=== PATIENT | male | born 1980 | race American Indian/Alaskan Native ===

== ENCOUNTER 2018-12-09 07:08 | Inpatient (IN) | payer SELFPAY ==
[2018-12-09] MEDS ORDERED: IBUPROFEN PO ONE (08:16)
[2018-12-09 09:16] LABS: Basophils % (Auto) 0.4 % (0.0-1.8); Eosinophils # (Auto) 0.1 K/mm3 (0.0-0.4); Eosinophils % (Auto) 1.1 % (0.0-4.3); Lymphocytes # (Auto) 1.8 K/mm3 (1.2-5.4); Lymphocytes % (Auto) 24.4 % (13.4-35.0); Mean Corpuscular HGB Conc 34 % (32-34); Mean Corpuscular Volume 100 fl (84-94); Monocytes # (Auto) 0.7 K/mm3 (0.0-0.8); Monocytes % (Auto) 9.9 % (0.0-7.3); Platelet Count 239 K/mm3 (140-440); Red Blood Count 3.82 M/mm3 (3.65-5.03); Red Cell Distribution Width 13.3 % (13.2-15.2)
--- NOTE | 2018-12-09 09:21 | XRay Report ---
CHEST 2 VIEWS INDICATION / CLINICAL INFORMATION: Chest pain for one day. COMPARISON: None available. FINDINGS: SUPPORT DEVICES: None. HEART / MEDIASTINUM: The heart size and pulmonary vasculature are normal. The aorta is normal in lisseth william. LUNGS / PLEURA: No significant pulmonary or pleural abnormality. No pneumothorax. ADDITIONAL FINDINGS: No significant additional findings. IMPRESSION: No acute findings. Signer Name: Bonifacio Fernandez MD Signed: 12/09/2018 9:16 AM Workstation Name: [id number]
[2018-12-09 09:35] LABS: BUN/Creatinine Ratio 7; Blood Urea Nitrogen 8 mg/dL (9-20); Calcium 8.7 mg/dL (8.4-10.2); Hemolysis Index 10
--- NOTE | 2018-12-09 11:35 | Vascular Lab Report ---
DUPLEX DOPPLER LOWER EXTREMITY VEINS, RIGHT INDICATION: Right leg pain and elevated d-dimer. TECHNIQUE: Duplex doppler imaging was performed through the veins of the right lower extremity using venous comp ression and other maneuvers. COMPARISON: None available. FINDINGS: Common femoral vein: Negative. Superficial femoral vein: Negative. Popliteal vein: Negative. Calf veins: Negative. Additional findings: There is no evidence of a popliteal cyst or other abnormality. IMPRESSION: No sonographic evidence for DVT in the right lower extremity. Signer Name: Bonifacio Fernandez MD Signed: 12/09/2018 11:30 AM Workstation Name: [id number]
--- NOTE | 2018-12-09 13:32 | Cat Scan Report ---
CTA chest with contrast INDICATION : cp, sob with elevated ddimer. TECHNIQUE: Axial imaging performed through the chest, with contrast bolus timing set to maximize opa cification of the pulmonary arteries. 3-plane MIP reformatted images were obtained. All CT scans at this location are performed using CT dose reduction for ALARA by means of automated exposure control. 100 mL of intravenous contrast administered. COMPARISON: None FINDINGS: Bolus: Contrast bolus timing is adequate. PTE: There is extensive thrombus within the left main, segmental, and subsegmental distribution in t he left upper and lower lobes. Mediastinum: Heart size is normal. No evidence of heart strain. No pathologic mediastinal adenopath y. Lungs: Lungs are clear. Upper abdomen: Limited imaging of the upper abdomen shows nothing acute. Bones: Degenerative changes in the spine with nothing acute. IMPRESSION: 1. Positive for PTE in the left lung as outlined above. No evidence of heart strain, parenchymal blanco ge in the lungs, or effusion. Critical result discovered at 1220 hours and called to Dr. Owens at 1222 hours on 12/09/18. A read ba ck was performed. Signer Name: Brad Muñoz MD Signed: 12/09/2018 1:28 PM Workstation Name: [id number]
[2018-12-09] MEDS ORDERED: HEPARIN 10,000 UNITS/10 ML IV ONE (13:56)
--- NOTE | 2018-12-09 14:04 | Emergency Department Report ---
ED General Adult HPI - General Chief complaint: Extremity Injury, Lower Stated complaint: R LEG PAIN Time Seen by Provider: 12/09/18 08:06 Source: patient Mode of arrival: Ambulatory Limitations: No Limitations - History of Present Illness Initial comments: Patient is a 38-year-old male who is presenting with right calf pain. Patient states that yesterday he was walking outside to a store and started having some CENTRAL chest pain shortness of breath. The patient states that he does began having some right calf pain. Patient states what she got to where he was at his chest pain did improve. Patient is currently chest pain free and has no shortness of breath. He denies any cough, congestion. Patient is continued to have right calf pain which is progressively worsening. Patient states that to 10 out of 10 in severity when he walks. Severity scale (0 -10): 8 - Related Data Allergies Allergy/AdvReac Type Severity Reaction Status Date / Time No Known Allergies Allergy Verified 12/09/18 14:05 ED Review of Systems ROS: Stated complaint: R LEG PAIN Other details as noted in HPI Comment: All other systems reviewed and negative ED Past Medical Hx - Past Medical History Previous Medical History?: No - Surgical History Past Surgical History?: Yes Additional Surgical History: Right hand - Social History Smoking Status: Current Every Day Smoker Substance Use Type: None ED Physical Exam - General Limitations: No Limitations General appearance: alert, in no apparent distress - Head Head exam: Present: atraumatic, normocephalic - Eye Eye exam: Present: normal appearance - ENT ENT exam: Present: mucous membranes moist - Neck Neck exam: Present: normal inspection - Respiratory Respiratory exam: Present: normal lung sounds bilaterally. Absent: respiratory distress, wheezes, rales, rhonchi - Cardiovascular Cardiovascular Exam: Present: regular rate, normal rhythm, normal heart sounds. Absent: systolic murmur, diastolic murmur, rubs, gallop - GI/Abdominal GI/Abdominal exam: Present: soft, normal bowel sounds. Absent: distended, tenderness, guarding, rebound - Rectal Rectal exam: Present: deferred - Extremities Exam Extremities exam: Present: normal inspection, tenderness (right calf) - Back Exam Back exam: Present: normal inspection - Neurological Exam Neurological exam: Present: alert, oriented X3 - Psychiatric Psychiatric exam: Present: normal affect, normal mood - Skin Skin exam: Present: warm, dry, intact, normal color. Absent: rash ED Course Vital Signs 12/09/18 12/09/18 07:12 08:21 Temperature 98.9 F Pulse Rate 94 H Respiratory 18 18 Rate Blood Pressure 121/73 O2 Sat by Pulse 96 Oximetry ED Medical Decision Making - Lab Data Result diagrams: 12/09/18 08:28 12/09/18 08:28 Lab Results 12/09/18 12/09/18 12/09/18 Range/Units 08:28 08:28 08:28 WBC 7.4 (4.5-11.0) K/mm3 RBC 3.82 (3.65-5.03) M/mm3 Hgb 13.0 (11.8-15.2) gm/dl Hct 38.0 (35.5-45.6) % MCV 100 H (84-94) fl MCH 34 H (28-32) pg MCHC 34 (32-34) % RDW 13.3 (13.2-15.2) % Plt Count 239 (140-440) K/mm3 Lymph % (Auto) 24.4 (13.4-35.0) % [place] % (Auto) 9.9 H (0.0-7.3) % Eos % (Auto) 1.1 (0.0-4.3) % Baso % (Auto) 0.4 (0.0-1.8) % Lymph # 1.8 (1.2-5.4) K/mm3 [place] # 0.7 (0.0-0.8) K/mm3 Eos # 0.1 (0.0-0.4) K/mm3 Baso # 0.0 (0.0-0.1) K/mm3 Seg Neutrophils % 64.2 (40.0-70.0) % Seg Neutrophils # 4.7 (1.8-7.7) K/mm3 D-Dimer 1936.24 H (0-234) ng/mlDDU Sodium 141 (137-145) mmol/L Potassium 3.8 (3.6-5.0) mmol/L Chloride 105.9 (98-107) mmol/L Carbon Dioxide 23 (22-30) mmol/L Anion Gap 16 mmol/L BUN 8 L (9-20) mg/dL Creatinine 1.1 (0.8-1.5) mg/dL Estimated GFR > 60 ml/min BUN/Creatinine Ratio 7 % Glucose 97 (75-100) mg/dL Calcium 8.7 (8.4-10.2) mg/dL Troponin T < 0.010 (0.00-0.029) ng/mL - Radiology Data [address] [address] Vascular Lab Report Signed Patient: SUJATHA ROSADO MR#: [id number] : 1980 Acct:[id number] Age/Sex: 38 / M ADM Date: 12/09/18 Loc: ED Attending Dr: Ordering Physician: PREMA OWENS MD Date of Service: 12/09/18 Procedure(s): VL venous duplex LE RT Accession Number(s): [id number] cc: PREMA OWENS MD DUPLEX DOPPLER LOWER EXTREMITY VEINS, RIGHT INDICATION: Right leg pain and elevated d-dimer. TECHNIQUE: Duplex doppler imaging was performed through the veins of the right lower extremity using venous compression and other maneuvers. COMPARISON: None available. FINDINGS: Common femoral vein: Negative. Superficial femoral vein: Negative. Popliteal vein: Negative. Calf veins: Negative. Additional findings: There is no evidence of a popliteal cyst or other abnormality. IMPRESSION: No sonographic evidence for DVT in the right lower extremity. Signer Name: Bonifacio Fernandez MD Signed: 12/09/2018 11:30 AM Workstation Name: [id number] Transcribed By: RT Dictated By: Bonifacio Fernandez MD Electronically Authenticated By: Bonifacio Fernandez MD Signed Date/Time: 12/09/[address] [address] Cat Scan Report Signed Patient: SUJATHA ROSADO MR#: [id number] : 1980 Acct:[id number] Age/Sex: 38 / M ADM Date: 12/09/18 Loc: ED Attending Dr: Ordering Physician: PREMA OWENS MD Date of Service: 12/09/18 Procedure(s): CT angio chest Accession Number(s): [id number] cc: PREMA OWENS MD CTA chest with contrast INDICATION : cp, sob with elevated ddimer. TECHNIQUE: Axial imaging performed through the chest, with contrast bolus timing set to maximize opacification of the pulmonary arteries. 3-plane MIP reformatted images were obtained. All CT scans at this location are performed using CT dose reduction for ALARA by means of automated exposure control. 100 mL of intravenous contrast administered. COMPARISON: None FINDINGS: Bolus: Contrast bolus timing is adequate. PTE: There is extensive thrombus within the left main, segmental, and subsegmental distribution in the left upper and lower lobes. Mediastinum: Heart size is normal. No evidence of heart strain. No pathologic mediastinal adenopathy. Lungs: Lungs are clear. Upper abdomen: Limited imaging of the upper abdomen shows nothing acute. Bones: Degenerative changes in the spine with nothing acute. IMPRESSION: 1. Positive for PTE in the left lung as outlined above. No evidence of heart strain, parenchymal change in the lungs, or effusion. Critical result discovered at 1220 hours and called to Dr. Owens at 1222 hours on 12/09/18. A read back was performed. Signer Name: Brad Muñoz MD Signed: 12/09/2018 1:28 PM Workstation Name: [id number] Transcribed By: JW Dictated By: Brad Muñoz MD Electronically Authenticated By: Brad Muñoz MD Signed Date/Time: 12/09/18 1328 DD/ 1319 TD/TT: DD/ 1129 - Medical Decision Making Despite being chest pain-free and not having shortness of breath patient does have extensive pulmonary embolus on the CT angiogram. Patient was started on heparin drip and will be admitted to the hospitalist service at this time. Critical care attestation.: If time is entered above; I have spent that time in minutes in the direct care of this critically ill patient, excluding procedure time. ED Disposition Clinical Impression: Pulmonary embolism Qualifiers: Pulmonary embolism type: other Chronicity: acute Acute cor pulmonale presence: without acute cor pulmonale Qualified Code(s): I26.99 - Other pulmonary embolism without acute cor pulmonale Disposition: OP ADMIT IP TO THIS HOSP Is pt being admited?: Yes Does the pt Need Aspirin: No Condition: Stable Time of Disposition: 14:12
[2018-12-09] MEDS ORDERED: MORPHINE IV ONE (14:15)
[2018-12-09 14:47] LABS: Hematocrit 36.9 % (35.5-45.6); Hemoglobin 13.2 gm/dl (11.8-15.2)
[2018-12-09] MEDS: HEPARIN/ 0.45% NACL-25,000 UNIT/500 ML 25,000 UNIT/500 ML BAG IV SCH (14:50)
[2018-12-09 14:59] LABS: INR 1.03 (0.87-1.13)
[2018-12-09 15:00] LABS: Partial Thromboplastin Time 27.5 Sec. (24.2-36.6)
--- NOTE | 2018-12-09 19:18 | History and Physical Report ---
History of Present Illness Date of examination: 12/09/18 Date of admission: 12/09/18 14:12 Chief complaint: RLE pain and SOB for one day History of present illness: 38-year-old male presents with right calf pain and SOB on minimal exertion. Patient states that yesterday he was walking to a store and started having some chest pain shortness of breath. The patient states that he does began having some right calf pain. Patient states his chest pain did improve. Patient is currently chest pain free and has no shortness of breath. He denies any cough, congestion. Patient continues to have right calf pain which is progressively worsening. Patient states that it is 10 out of 10 in severity when he walks. Past Medical History No Surgical History Right hand surgery Social History Smoking Status: Current Every Day Smoker Substance Use Type: None Family History Htn Review of Systems ROS: Stated complaint: R LEG PAIN Other details as noted in HPI Comment: All other systems reviewed and negative Medications and Allergies Allergies Allergy/AdvReac Type Severity Reaction Status Date / Time No Known Allergies Allergy Verified 12/09/18 14:05 Home Medications Medication Instructions Recorded Confirmed Last Taken Type No Known Home Medications [No 12/09/18 12/09/18 Unknown History Reported Home Medications] Active Meds: Active Medications Heparin Sodium/Sodium Chloride (Heparin/ 0.45% Nacl-25,000 Unit/500 Ml) 25,000 unit in 500 mls @ 30 mls/hr IV TITR SHARATH; Protocol Last Admin: 12/09/18 14:50 Dose: 1,500 units/hr, 30 mls/hr Documented by: Exam - Constitutional Vitals: Temp Pulse Resp BP Pulse Ox 98.9 F 78 16 122/73 96 12/09/18 07:12 12/09/18 16:51 12/09/18 16:51 12/09/18 16:51 12/09/18 16:51 General appearance: Present: mild distress, well-nourished - EENT Eyes: Present: PERRL ENT: hearing intact, clear oral mucosa - Neck Neck: Present: supple, normal ROM - Respiratory Respiratory effort: normal Respiratory: bilateral: CTA - Cardiovascular Heart rate: 100 Rhythm: regular Heart Sounds: Present: S1 & S2. Absent: rub, click - Extremities Extremities: no ischemia, pulses intact, pulses symmetrical, No edema Peripheral Pulses: within normal limits - Abdominal General gastrointestinal: Present: soft, non-tender, non-distended, normal bowel sounds Male genitourinary: Present: normal - Integumentary Integumentary: Present: clear, warm, dry - Musculoskeletal Musculoskeletal: gait normal, strength equal bilaterally - Psychiatric Psychiatric: appropriate mood/affect, intact judgment & insight - Neurologic Neurologic: CNII-XII intact, moves all extremities - Allied Health Allied health notes reviewed: nursing, case management Results - Labs CBC & Chem 7: 12/10/18 05:07 12/10/18 05:07 Labs: Laboratory Last Values WBC 7.4 K/mm3 (4.5-11.0) 12/09/18 08:28 RBC 3.82 M/mm3 (3.65-5.03) 12/09/18 08:28 Hgb 13.2 gm/dl (11.8-15.2) 12/09/18 14:29 Hct 36.9 % (35.5-45.6) 12/09/18 14:29 MCV 100 fl (84-94) H 12/09/18 08:28 MCH 34 pg (28-32) H 12/09/18 08:28 MCHC 34 % (32-34) 12/09/18 08:28 RDW 13.3 % (13.2-15.2) 12/09/18 08:28 Plt Count 245 K/mm3 (140-440) 12/09/18 14:29 Lymph % (Auto) 24.4 % (13.4-35.0) 12/09/18 08:28 [place] % (Auto) 9.9 % (0.0-7.3) H 12/09/18 08:28 Eos % (Auto) 1.1 % (0.0-4.3) 12/09/18 08:28 Baso % (Auto) 0.4 % (0.0-1.8) 12/09/18 08:28 Lymph # 1.8 K/mm3 (1.2-5.4) 12/09/18 08:28 [place] # 0.7 K/mm3 (0.0-0.8) 12/09/18 08:28 Eos # 0.1 K/mm3 (0.0-0.4) 12/09/18 08:28 Baso # 0.0 K/mm3 (0.0-0.1) 12/09/18 08:28 Seg Neutrophils % 64.2 % (40.0-70.0) 12/09/18 08:28 Seg Neutrophils # 4.7 K/mm3 (1.8-7.7) 12/09/18 08:28 PT 13.2 Sec. (12.2-14.9) 12/09/18 14:29 INR 1.03 (0.87-1.13) 12/09/18 14:29 APTT 27.5 Sec. (24.2-36.6) 12/09/18 14:29 1936.24 ng/mlDDU (0-234) H 12/09/18 08:28 Sodium 141 mmol/L (137-145) 12/09/18 08:28 Potassium 3.8 mmol/L (3.6-5.0) 12/09/18 08:28 Chloride 105.9 mmol/L (98-107) 12/09/18 08:28 Carbon Dioxide 23 mmol/L (22-30) 12/09/18 08:28 16 mmol/L 12/09/18 08:28 BUN 8 mg/dL (9-20) L 12/09/18 08:28 1.1 mg/dL (0.8-1.5) 12/09/18 08:28 Estimated GFR > 60 ml/min 12/09/18 08:28 7 % 12/09/18 08:28 Glucose 97 mg/dL (75-100) 12/09/18 08:28 Calcium 8.7 mg/dL (8.4-10.2) 12/09/18 08:28 < 0.010 ng/mL (0.00-0.029) 12/09/18 08:28 Short CBC 12/09/18 12/09/18 12/10/18 Range/Units 08:28 14:29 05:07 WBC 7.4 6.5 (4.5-11.0) K/mm3 Hgb 13.0 13.2 12.9 (11.8-15.2) gm/dl Hct 38.0 36.9 38.0 (35.5-45.6) % Plt Count 239 245 246 (140-440) K/mm3 BMP 12/09/18 12/10/18 08:28 05:07 Sodium 141 138 Potassium 3.8 4.2 Chloride 105.9 106.8 Carbon Dioxide 23 22 BUN 8 L 8 L Creatinine 1.1 1.0 Glucose 97 104 H Calcium 8.7 8.3 L Cardiac Enzymes 12/09/18 Range/Units 08:28 Troponin T < 0.010 (0.00-0.029) ng/mL Liver Function 12/10/18 Range/Units 05:07 Total Bilirubin 0.40 (0.1-1.2) mg/dL AST 8 (5-40) units/L ALT 10 (7-56) units/L Alkaline Phosphatase 97 (35-129) units/L Albumin 3.2 L (3.9-5) g/dL - Imaging and Cardiology EKG: report reviewed CT scan - chest: report reviewed Imaging and Cardiology: CTA chest PTE: There is extensive thrombus within the left main, segmental, and subsegmental distribution in the left upper and lower lobes. Mediastinum: Heart size is normal. No evidence of heart strain. No pathologic mediastinal adenopathy. Lungs: Lungs are clear. IMPRESSION: 1. Positive for PTE in the left lung as outlined above. No evidence of heart strain, parenchymal change in the lungs, or effusion DUPLEX DOPPLER LOWER EXTREMITY VEINS, RIGHT INDICATION: Right leg pain and elevated d-dimer. . FINDINGS: Common femoral vein: Negative. Superficial femoral vein: Negative. Popliteal vein: Negative. Calf veins: Negative. Additional findings: There is no evidence of a popliteal cyst or other abnormality. IMPRESSION: No sonographic evidence for DVT in the right lower extremity. Assessment and Plan Advance Directives: Yes (Full code) VTE prophylaxis?: Chemical Plan of care discussed with patient/family: Yes - Patient Problems (1) Acute pulmonary embolism Current Visit: Yes Status: Acute Qualifiers: Acute cor pulmonale presence: without acute cor pulmonale Plan to address problem: Initiated on IV Heparin drip Vascular sugery consult for possible EKOS Will defer to primary team regarding ELIQUIS/Coumadin/Xarelto (2) Nicotine dependence Current Visit: Yes Status: Chronic Qualifiers: Nicotine product type: cigarettes Plan to address problem: Counselled Less than 10 minutes Nicoderm patch initiated (3) DVT prophylaxis Current Visit: Yes Status: Acute Plan to address problem: On Heparin drip and GI prophylaxis
[2018-12-09] MEDS ORDERED: TYLENOL PO PRN (19:19)
[2018-12-09] MEDS ORDERED: DILAUDID IV PRN (19:19)
[2018-12-09] MEDS ORDERED: SODIUM CHLORIDE FLUSH SYRINGE 10 ML IV PRN (19:19)
[2018-12-09] MEDS ORDERED: ZOFRAN IV PRN (19:19)
[2018-12-09] MEDS: PERCOCET 5/325 PO PRN (20:35)
[2018-12-09] MEDS: NACL 0.9% 1000 ML 1,000 ML IV SCH (20:36)
[2018-12-09] MEDS: PEPCID PO SCH (21:10)
[2018-12-09] MEDS: SODIUM CHLORIDE FLUSH SYRINGE 10 ML IV SCH (21:10)
[2018-12-10] MEDS: PERCOCET 5/325 PO PRN ×3 (02:27→19:23)
[2018-12-10 06:11] LABS: Basophils % (Auto) 0.6 % (0.0-1.8); Eosinophils # (Auto) 0.1 K/mm3 (0.0-0.4); Eosinophils % (Auto) 2.2 % (0.0-4.3); Hemoglobin 12.9 gm/dl (11.8-15.2); Lymphocytes # (Auto) 2.3 K/mm3 (1.2-5.4); Lymphocytes % (Auto) 34.8 % (13.4-35.0); Mean Corpuscular HGB Conc 34 % (32-34); Mean Corpuscular Volume 100 fl (84-94); Monocytes # (Auto) 0.5 K/mm3 (0.0-0.8); Monocytes % (Auto) 8.4 % (0.0-7.3); Platelet Count 246 K/mm3 (140-440); Red Blood Count 3.79 M/mm3 (3.65-5.03); Red Cell Distribution Width 13.3 % (13.2-15.2)
[2018-12-10 06:34] LABS: Alanine Aminotransferase 10 units/L (7-56); Albumin 3.2 g/dL (3.9-5); BUN/Creatinine Ratio 8; Blood Urea Nitrogen 8 mg/dL (9-20); Calcium 8.3 mg/dL (8.4-10.2); Hemolysis Index 5
[2018-12-10] MEDS: HEPARIN/ 0.45% NACL-25,000 UNIT/500 ML 25,000 UNIT/500 ML BAG IV SCH ×2 (06:42→20:10)
[2018-12-10] MEDS: PEPCID PO SCH ×2 (13:31→21:35)
[2018-12-10] MEDS: SODIUM CHLORIDE FLUSH SYRINGE 10 ML IV SCH ×2 (13:34→21:35)
[2018-12-10] MEDS: HABITROL TD SCH (13:42)
--- NOTE | 2018-12-10 14:05 | Consultation ---
History of Present Illness - Reason for Consult Consult date: 12/10/18 DVT and PE - History of Present Illness 38-year-old male presents with right calf pain and SOB on minimal exertion. Patient states that yesterday he was walking to a store and started having some chest pain shortness of breath. The patient states that he does began having some right calf pain. Patient states his chest pain did improve. Patient is currently chest pain free and has no shortness of breath. He denies any cough, congestion. Patient continues to have right calf pain which is progressively worsening. Patient states that it is 10 out of 10 in severity when he walks. The patient has been living out of his car for last few weeks, intermittently. He has been sleeping in some unusual positions. Since this weekend, he had right calf pain and shortness of breath. His right calf pain has worsened and his shortness of breath has improved. CT scan demonstrates low probability pulm onary embolism with no evidence of right heart strain. The patient is without distress and is breathing with room air. Palpable dorsalis pedis pulses. Past Medical History No Surgical History Right hand surgery Social History Smoking Status: Current Every Day Smoker Substance Use Type: None Family History Htn Medications and Allergies Allergies Allergy/AdvReac Type Severity Reaction Status Date / Time No Known Allergies Allergy Verified 12/09/18 14:05 Home Medications Medication Instructions Recorded Confirmed Last Taken Type No Known Home Medications [No 12/09/18 12/09/18 Unknown History Reported Home Medications] Active Meds: Active Medications Acetaminophen (Tylenol) 650 mg PO Q4H PRN PRN Reason: Pain MILD(1-3)/Fever >100.5/CHANDLER Famotidine (Pepcid) 20 mg PO BID SHARATH Last Admin: 12/09/18 21:10 Dose: 20 mg Documented by: Hydromorphone HCl (Dilaudid) 0.5 mg IV Q3H PRN PRN Reason: Pain , Severe (7-10) Heparin Sodium/Sodium Chloride (Heparin/ 0.45% Nacl-25,000 Unit/500 Ml) 25,000 unit in 500 mls @ 30 mls/hr IV TITR SHARATH; Protocol Last Titration: 12/10/18 06:44 Dose: 1,850 units/hr, 37 mls/hr Documented by: Sodium Chloride (Nacl 0.9% 1000 Ml) 1,000 mls @ 75 mls/hr IV DIRECT [facility] Last Admin: 12/09/18 20:36 Dose: 75 mls/hr Documented by: Nicotine (Habitrol) 14 mg TD [facility] Ondansetron HCl (Zofran) 4 mg IV Q8H PRN PRN Reason: Nausea And Vomiting Oxycodone/Acetaminophen (Percocet 5/325) 1 tab PO Q6H PRN PRN Reason: Pain, Moderate (4-6) Last Admin: 12/10/18 02:27 Dose: 1 tab Documented by: Sodium Chloride (Sodium Chloride Flush Syringe 10 Ml) 10 ml IV BID [facility] Last Admin: 12/09/18 21:10 Dose: 10 ml Documented by: Sodium Chloride (Sodium Chloride Flush Syringe 10 Ml) 10 ml IV PRN PRN PRN Reason: LINE FLUSH Review of Systems All systems: negative (see HPI) Exam - Constitutional Vitals: Temp Pulse Resp BP Pulse Ox 98.5 F 91 H 18 120/56 94 12/10/18 11:42 12/10/18 11:42 12/10/18 11:42 12/10/18 11:42 12/10/18 11:42 General appearance: Present: no acute distress - EENT Eyes: Present: EOM intact ENT: hearing intact - Respiratory Respiratory effort: normal - Extremities Extremities: pulses intact, normal temperature, normal color, abnormal (right calf discomfort with palpation) - Abdominal General gastrointestinal: Present: soft - Psychiatric Psychiatric: appropriate mood/affect, cooperative Results - Labs CBC & Chem 7: 12/10/18 05:07 12/10/18 05:07 Labs: Abnormal lab results 12/09/18 12/10/18 12/10/18 Range/Units 20:25 05:07 05:07 MCV 100 H (84-94) fl MCH 34 H (28-32) pg [place] % (Auto) 8.4 H (0.0-7.3) % Heparin Anti-Xa Level 0.12 L (0.3-0.7) U.I./ml BUN 8 L (9-20) mg/dL Glucose 104 H (75-100) mg/dL Calcium 8.3 L (8.4-10.2) mg/dL Albumin 3.2 L (3.9-5) g/dL 12/10/18 Range/Units 05:07 MCV (84-94) fl MCH (28-32) pg [place] % (Auto) (0.0-7.3) % Heparin Anti-Xa Level 0.28 L (0.3-0.7) U.I./ml BUN (9-20) mg/dL Glucose (75-100) mg/dL Calcium (8.4-10.2) mg/dL Albumin (3.9-5) g/dL - Imaging and Cardiology CT scan - chest: report reviewed, image reviewed Venous US: report reviewed, image reviewed Assessment and Plan 38-year-old male with low probability pulmonary embolism with consulted for PE and possible right lower extremity DVT. CT demonstrates no right heart strain. Thrombus load is low to medium. No need for vascular intervention. Patient likely had a right lower extremity DVT which then embolized to his lungs. There could also be a musculoskeletal component of his right calf discomfort. The patient has palpable pedal pulses suggesting no arterial ischemia. Recommend anticoagulation for at least 3 months, but for as long as patient continues to live in his car. Once he is no longer living in his car and has completed 3 months of anticoagulation, then he can discontinue anticoagulation. Given patient's self pay status, he will probably require transition to Coumadin. Coumadin requires hematology/oncology follow-up for INR checks and will need a free clinic or low cost clinic to monitor his INR. Vascular does not follow Coumadin.
--- NOTE | 2018-12-10 15:41 | Progress Note ---
Assessment and Plan Assessment and plan: 38-year-old male presents with right calf pain and SOB on minimal exertion and CP Acute pulmonary embolism, right lower extremity DVT Vascular surgery input appreciated, continue anticoagulation, we need 3 months of anticoagulation Nicotine dependence : Counseled on tobacco cessation, greater than 10 minutes was spent. Nicotine patches were offered History Interval history: Constitutional: No fevers, no malaise, no joint pains CVS: No chest pain, no orthopnea, no dyspnea on exertion, no pedal edema GI: No abdominal pain, no diarrhea, no vomiting, no constipation Respiratory: no wheezing, no coughing Hospitalist Physical - Physical exam Narrative exam: General.: Appears well, no distress, nontoxic HEENT: Moist mucous membranes, extraocular muscles intact, no lymphadenopathy Neck: supple Cardiac: S1-S2 heard Lungs: clear to auscultation bilaterally Abdomen: soft , nontender, nondistended, bowel sounds positive Extremities: no edema clubbing or cyanosis Skin: no rash or lesions Neurologic: no gross focal deficits Psych: calm, and cooperative - Constitutional Vitals: Temp Pulse Resp BP Pulse Ox 98.5 F 91 H 18 120/56 94 12/10/18 11:42 12/10/18 11:42 12/10/18 11:42 12/10/18 11:42 12/10/18 11:42 General appearance: Present: no acute distress Results - Labs CBC & Chem 7: 12/10/18 05:07 12/10/18 05:07 Labs: Laboratory Last Values WBC 6.5 K/mm3 (4.5-11.0) 12/10/18 05:07 RBC 3.79 M/mm3 (3.65-5.03) 12/10/18 05:07 Hgb 12.9 gm/dl (11.8-15.2) 12/10/18 05:07 Hct 38.0 % (35.5-45.6) 12/10/18 05:07 MCV 100 fl (84-94) H 12/10/18 05:07 MCH 34 pg (28-32) H 12/10/18 05:07 MCHC 34 % (32-34) 12/10/18 05:07 RDW 13.3 % (13.2-15.2) 12/10/18 05:07 Plt Count 246 K/mm3 (140-440) 12/10/18 05:07 Lymph % (Auto) 34.8 % (13.4-35.0) 12/10/18 05:07 [place] % (Auto) 8.4 % (0.0-7.3) H 12/10/18 05:07 Eos % (Auto) 2.2 % (0.0-4.3) 12/10/18 05:07 Baso % (Auto) 0.6 % (0.0-1.8) 12/10/18 05:07 Lymph # 2.3 K/mm3 (1.2-5.4) 12/10/18 05:07 [place] # 0.5 K/mm3 (0.0-0.8) 12/10/18 05:07 Eos # 0.1 K/mm3 (0.0-0.4) 12/10/18 05:07 Baso # 0.0 K/mm3 (0.0-0.1) 12/10/18 05:07 Seg Neutrophils % 54.0 % (40.0-70.0) 12/10/18 05:07 Seg Neutrophils # 3.5 K/mm3 (1.8-7.7) 12/10/18 05:07 PT 13.2 Sec. (12.2-14.9) 12/09/18 14:29 INR 1.03 (0.87-1.13) 12/09/18 14:29 APTT 27.5 Sec. (24.2-36.6) 12/09/18 14:29 1936.24 ng/mlDDU (0-234) H 12/09/18 08:28 Heparin Anti-Xa Level 0.28 U.I./ml (0.3-0.7) L 12/10/18 12:59 Sodium 138 mmol/L (137-145) 12/10/18 05:07 Potassium 4.2 mmol/L (3.6-5.0) 12/10/18 05:07 Chloride 106.8 mmol/L (98-107) 12/10/18 05:07 Carbon Dioxide 22 mmol/L (22-30) 12/10/18 05:07 13 mmol/L 12/10/18 05:07 BUN 8 mg/dL (9-20) L 12/10/18 05:07 1.0 mg/dL (0.8-1.5) 12/10/18 05:07 Estimated GFR > 60 ml/min 12/10/18 05:07 8 % 12/10/18 05:07 Glucose 104 mg/dL (75-100) H 12/10/18 05:07 4.7 % (4-6) 12/09/18 20:25 Calcium 8.3 mg/dL (8.4-10.2) L 12/10/18 05:07 0.40 mg/dL (0.1-1.2) 12/10/18 05:07 AST 8 units/L (5-40) 12/10/18 05:07 ALT 10 units/L (7-56) 12/10/18 05:07 97 units/L (35-129) 12/10/18 05:07 < 0.010 ng/mL (0.00-0.029) 12/09/18 08:28 6.3 g/dL (6.3-8.2) 12/10/18 05:07 3.2 g/dL (3.9-5) L 12/10/18 05:07 1.0 % 12/10/18 05:07 Active Medications - Current Medications Current Medications: Generic Name Dose Route Start Last Admin Trade Name Ruslan PRN Reason Stop Dose Admin Acetaminophen 650 mg 12/09/18 19:19 Tylenol PO Q4H PRN Pain MILD(1-3)/Fever >100.5/CHANDLER Famotidine 20 mg 12/09/18 22:00 12/10/18 13:31 Pepcid PO 20 mg BID SHARATH Administration Hydromorphone HCl 0.5 mg 12/09/18 19:19 Dilaudid IV Q3H PRN Pain , Severe (7-10) Heparin Sodium/Sodium Chloride 25,000 unit in 500 mls @ 30 mls/hr 12/09/18 14:00 12/10/18 06:44 Heparin/ 0.45% Nacl-25,000 Unit/500 Ml IV 1,850 units/hr TITR SHARATH 37 mls/hr Titration Protocol 1,500 UNITS/HR Sodium Chloride 1,000 mls @ 75 mls/hr 12/09/18 20:00 12/09/18 20:36 Nacl 0.9% 1000 Ml IV 75 mls/hr DIRECT SHARATH Administration Nicotine 14 mg 12/10/18 10:00 12/10/18 13:42 Habitrol TD 14 mg QDAY SHARATH Administration Ondansetron HCl 4 mg 12/09/18 19:19 Zofran IV Q8H PRN Nausea And Vomiting Oxycodone/Acetaminophen 1 tab 12/09/18 19:19 12/10/18 13:30 Percocet 5/325 PO 1 tab Q6H PRN Administration Pain, Moderate (4-6) Sodium Chloride 10 ml 12/09/18 22:00 12/10/18 13:34 Sodium Chloride Flush Syringe 10 Ml IV 10 ml BID SHARATH Administration Sodium Chloride 10 ml 12/09/18 19:19 Sodium Chloride Flush Syringe 10 Ml IV PRN PRN LINE FLUSH
[2018-12-10] MEDS: ELIQUIS PO SCH (21:35)
[2018-12-11] MEDS: PERCOCET 5/325 PO PRN ×3 (04:03→16:07)
[2018-12-11] MEDS: NACL 0.9% 1000 ML 1,000 ML IV SCH (04:05)
[2018-12-11 05:21] LABS: Hematocrit 37.5 % (35.5-45.6); Hemoglobin 12.9 gm/dl (11.8-15.2)
[2018-12-11] MEDS: PEPCID PO SCH (10:24)
[2018-12-11] MEDS: ELIQUIS PO SCH (10:24)
[2018-12-11] MEDS: HABITROL TD SCH (10:24)
[2018-12-11] MEDS: SODIUM CHLORIDE FLUSH SYRINGE 10 ML IV SCH (10:26)
[2018-12-11 15:57] VITALS: BP 121/79
--- NOTE | 2018-12-11 17:50 | Progress Note ---
Hospitalist Physical - Constitutional Vitals: Temp Pulse Resp BP Pulse Ox 98.1 F 80 20 121/79 95 12/11/18 15:33 12/11/18 15:33 12/11/18 16:07 12/11/18 15:33 12/11/18 15:33 General appearance: Present: no acute distress Results - Labs CBC & Chem 7: 12/11/18 04:18 12/10/18 05:07 Labs: Laboratory Last Values WBC 6.5 K/mm3 (4.5-11.0) 12/10/18 05:07 RBC 3.79 M/mm3 (3.65-5.03) 12/10/18 05:07 Hgb 12.9 gm/dl (11.8-15.2) 12/11/18 04:18 Hct 37.5 % (35.5-45.6) 12/11/18 04:18 MCV 100 fl (84-94) H 12/10/18 05:07 MCH 34 pg (28-32) H 12/10/18 05:07 MCHC 34 % (32-34) 12/10/18 05:07 RDW 13.3 % (13.2-15.2) 12/10/18 05:07 Plt Count 266 K/mm3 (140-440) 12/11/18 04:18 Lymph % (Auto) 34.8 % (13.4-35.0) 12/10/18 05:07 [place] % (Auto) 8.4 % (0.0-7.3) H 12/10/18 05:07 Eos % (Auto) 2.2 % (0.0-4.3) 12/10/18 05:07 Baso % (Auto) 0.6 % (0.0-1.8) 12/10/18 05:07 Lymph # 2.3 K/mm3 (1.2-5.4) 12/10/18 05:07 [place] # 0.5 K/mm3 (0.0-0.8) 12/10/18 05:07 Eos # 0.1 K/mm3 (0.0-0.4) 12/10/18 05:07 Baso # 0.0 K/mm3 (0.0-0.1) 12/10/18 05:07 Seg Neutrophils % 54.0 % (40.0-70.0) 12/10/18 05:07 Seg Neutrophils # 3.5 K/mm3 (1.8-7.7) 12/10/18 05:07 PT 13.2 Sec. (12.2-14.9) 12/09/18 14:29 INR 1.03 (0.87-1.13) 12/09/18 14:29 APTT 27.5 Sec. (24.2-36.6) 12/09/18 14:29 1936.24 ng/mlDDU (0-234) H 12/09/18 08:28 Heparin Anti-Xa Level 0.41 U.I./ml (0.3-0.7) 12/10/18 20:35 Sodium 138 mmol/L (137-145) 12/10/18 05:07 Potassium 4.2 mmol/L (3.6-5.0) 12/10/18 05:07 Chloride 106.8 mmol/L (98-107) 12/10/18 05:07 Carbon Dioxide 22 mmol/L (22-30) 12/10/18 05:07 13 mmol/L 12/10/18 05:07 BUN 8 mg/dL (9-20) L 12/10/18 05:07 1.0 mg/dL (0.8-1.5) 12/10/18 05:07 Estimated GFR > 60 ml/min 12/10/18 05:07 8 % 12/10/18 05:07 Glucose 104 mg/dL (75-100) H 12/10/18 05:07 4.7 % (4-6) 12/09/18 20:25 Calcium 8.3 mg/dL (8.4-10.2) L 12/10/18 05:07 0.40 mg/dL (0.1-1.2) 12/10/18 05:07 AST 8 units/L (5-40) 12/10/18 05:07 ALT 10 units/L (7-56) 12/10/18 05:07 97 units/L (35-129) 12/10/18 05:07 < 0.010 ng/mL (0.00-0.029) 12/09/18 08:28 6.3 g/dL (6.3-8.2) 12/10/18 05:07 3.2 g/dL (3.9-5) L 12/10/18 05:07 1.0 % 12/10/18 05:07 Active Medications - Current Medications Current Medications: Generic Name Dose Route Start Last Admin Trade Name Freq PRN Reason Stop Dose Admin Acetaminophen 650 mg 12/09/18 19:19 Tylenol PO Q4H PRN Pain MILD(1-3)/Fever >100.5/CAHNDLER Apixaban 10 mg 12/10/18 22:00 12/11/18 10:24 Eliquis PO 10 mg Q12HR SHARATH Administration Protocol Famotidine 20 mg 12/09/18 22:00 12/11/18 10:24 Pepcid PO 20 mg BID SHARATH Administration Hydromorphone HCl 0.5 mg 12/09/18 19:19 Dilaudid IV Q3H PRN Pain , Severe (7-10) Sodium Chloride 1,000 mls @ 75 mls/hr 12/09/18 20:00 12/11/18 04:05 Nacl 0.9% 1000 Ml IV 75 mls/hr DIRECT SHARATH Administration Nicotine 14 mg 12/10/18 10:00 12/11/18 10:24 Habitrol TD 14 mg QDAY SHARATH Administration Ondansetron HCl 4 mg 12/09/18 19:19 Zofran IV Q8H PRN Nausea And Vomiting Oxycodone/Acetaminophen 1 tab 12/09/18 19:19 12/11/18 16:07 Percocet 5/325 PO 1 tab Q6H PRN Administration Pain, Moderate (4-6) Sodium Chloride 10 ml 12/09/18 22:00 12/11/18 10:26 Sodium Chloride Flush Syringe 10 Ml IV 10 ml BID SHARATH Administration Sodium Chloride 10 ml 12/09/18 19:19 Sodium Chloride Flush Syringe 10 Ml IV PRN PRN LINE FLUSH
--- NOTE | 2018-12-11 18:06 | Discharge Summary ---
Providers - Providers Date of Admission: 12/09/18 14:12 Attending physician: ASTER COULTER MD 12/09/18 19:21 Consult to Physician [CONS] Routine Comment: Consulting Provider: SAMEERA CAMARILLO Physician Instructions: Reason For Exam: Acute PE [facility] Condition: Stable Hospital course: 38-year-old male presents with right calf pain and SOB on minimal exertion and CP Acute pulmonary embolism, right lower extremity DVT Vascular surgery input appreciated, was rx with heparin ggt, and then transitioned to eliquis prior to dc, we need 3 months of anticoagulation Nicotine dependence : Counseled on tobacco cessation, greater than 10 minutes was spent. Nicotine patches were offered Disposition: DC-01 TO HOME OR SELFCARE Time spent for discharge: 33 mins Core Measure Documentation - Palliative Care Palliative Care/ Comfort Measures: Not Applicable - Core Measures Any of the following diagnoses?: none Exam - Physical Exam Narrative exam: General.: Appears well, no distress, nontoxic HEENT: Moist mucous membranes, extraocular muscles intact, no lymphadenopathy Neck: supple Cardiac: S1-S2 heard Lungs: clear to auscultation bilaterally Abdomen: soft , nontender, nondistended, bowel sounds positive Extremities: no edema clubbing or cyanosis Skin: no rash or lesions Neurologic: no gross focal deficits Psych: calm, and cooperative - Constitutional Vitals: Temp Pulse Resp BP Pulse Ox 98.1 F 80 20 121/79 95 12/11/18 15:33 12/11/18 15:33 12/11/18 16:07 12/11/18 15:33 12/11/18 15:33 Plan Follow up with: FABIAN HENDERSON MD [Primary Care Provider] - 7 Days Prescriptions: Apixaban [Eliquis starter pack] 5 mg PO DAILY #1 tab.ds.pk Nicotine [Habitrol] 14 mg TD QDAY #30 patch oxyCODONE /ACETAMINOPHEN [Percocet 5/325 mg] 1 tab PO Q6H PRN #30 tablet PRN Reason: Pain, Moderate (4-6)
== END 2018-12-11 21:03 | disposition home or self-care (01) | DRG 176 ==
LOC: ED 07:08 → 4A 14:12 → 3A 12-10 20:21
PROVIDERS: ADMIT Internal Medicine; ATTEND Internal Medicine
DX: I26.99 Other pulmonary embolism without acute cor pulmonale (principal); F17.200 Nicotine dependence, unspecified, uncomplicated; Z71.6 Tobacco abuse counseling; Z82.49 Family history of ischemic heart disease and other diseases of the circulatory system
CPT/HCPCS: 36415; 71046; 71275; 80048; 80053; 83036; 84484; 85014; 85018; 85025; 85049; 85379; 85520; 85610; 85730; 93005; 93010; 99406; G0378; J1644; J2270; J7030; Q9967

== ENCOUNTER 2019-03-08 05:00 | Inpatient (IN) | payer SELFPAY ==
[2019-03-08] MEDS ORDERED: ASPIRIN 325 MG TAB PO ONE (05:06)
[2019-03-08] MEDS ORDERED: SODIUM CHLORIDE 0.9% 1000 ML 1,000 ML IV ONE (05:06)
[2019-03-08] MEDS ORDERED: oxyCODONE /ACETAMINOPHEN 5-325MG TAB PO ONE (05:07)
--- NOTE | 2019-03-08 05:11 | Emergency Department Report ---
Stated Complaint: CHEST PAIN - HPI History of Present Illness: Mr. Laurent is a 38-year-old male with history of pulmonary embolism and DVT who presents with sudden onset of chest pain this morning just 2 hours prior to arrival. The chest pain occurred at rest while watching videos. Recently diagnosed with DVT and PE in December. Has been unable to afford anticoagulation medication. Doppler ultrasound and CT angio chest ordered. Case management consultation also ordered. I performed screening exam. I initiated orders for treatment in emergency department. Patient will be managed by my colleague. MSE screening note: Focused history and physical exam performed. Due to findings the following was ordered: ED Disposition for MSE Condition: Stable Referrals: PRIMARY CARE, [Primary Care Provider] - 3-5 Days
[2019-03-08 05:33] LABS: Basophils % (Auto) 0.3 % (0.0-1.8); Eosinophils # (Auto) 0.3 K/mm3 (0.0-0.4); Hematocrit 38.6 % (35.5-45.6); Lymphocytes # (Auto) 2.7 K/mm3 (1.2-5.4); Lymphocytes % (Auto) 39.9 % (13.4-35.0); Mean Corpuscular HGB Conc 34 % (32-34); Mean Corpuscular Volume 100 fl (84-94); Monocytes # (Auto) 0.5 K/mm3 (0.0-0.8); Monocytes % (Auto) 7.9 % (0.0-7.3); Platelet Count 363 K/mm3 (140-440); Red Blood Count 3.87 M/mm3 (3.65-5.03); Red Cell Distribution Width 13.4 % (13.2-15.2)
[2019-03-08 05:51] LABS: Alanine Aminotransferase 44 units/L (7-56); Albumin 3.9 g/dL (3.9-5); BUN/Creatinine Ratio 12; Blood Urea Nitrogen 12 mg/dL (9-20); Calcium 8.2 mg/dL (8.4-10.2); Hemolysis Index 5
--- NOTE | 2019-03-08 06:02 | Vascular Lab Report ---
DUPLEX DOPPLER LOWER EXTREMITY VEINS, BILATERAL INDICATION / CLINICAL INFORMATION: hx of DVT. Leg pain. TECHNIQUE: Duplex doppler imaging was performed through the veins of both lower extremities using venous rené rosanne and other maneuvers. COMPARISON: Ultrasound dated 12/09/18 FINDINGS: RIGHT COMMON FEMORAL VEIN: Negative. RIGHT FEMORAL VEIN: Negative. RIGHT POPLITEAL VEIN: Negative. RIGHT CALF VEINS: Negative. LEFT COMMON FEMORAL VEIN: Negative. LEFT FEMORAL VEIN: Negative. LEFT POPLITEAL VEIN: Negative. LEFT CALF VEINS: Negative. ADDITIONAL FINDINGS: None. IMPRESSION: 1. No sonographic evidence for DVT in either lower extremity. Signer Name: Sebastian Guardado MD Signed: 03/08/2019 5:57 AM Workstation Name: [id number]
--- NOTE | 2019-03-08 06:31 | XRay Report ---
CHEST 1 VIEW 03/08/2019 6:07 AM INDICATION / CLINICAL INFORMATION: Chest Pain. COMPARISON: 12/09/18 FINDINGS: SUPPORT DEVICES: None. HEART / MEDIASTINUM: No significant abnormality. LUNGS / PLEURA: No significant pulmonary or pleural abnormality. No pneumothorax. ADDITIONAL FINDINGS: No significant additional findings. IMPRESSION: 1. No acute findings. No change. Signer Name: Sebastian Guardado MD Signed: 03/08/2019 6:27 AM Workstation Name: [id number]
--- NOTE | 2019-03-08 06:41 | Cat Scan Report ---
CTA CHEST WITH CONTRAST INDICATION / CLINICAL INFORMATION: MAIN: chest pain leg pain hx of recent [id number]/100ML. TECHNIQUE: Axial CT images were obtained through the chest after injection of 100 MLO Omnipaque 350 IV contrast. 3 plane MIP and/or 3D reconstructions were produced. All CT scans at this location are performed usi ng CT dose reduction for ALESIARA by means of automated exposure control. COMPARISON: CT dated 12/09/18 FINDINGS: PULMONARY ARTERIES: No acute pulmonary emboli. Previous left-sided pulmonary emboli have resolved. THORACIC AORTA: No significant abnormality. HEART: No significant abnormality. CORONARY ARTERIES: No significant calcification. MEDIASTINUM / JOHNNIE: No significant abnormality. PLEURA: No pleural effusion. No pneumothorax. LUNGS: No acute air space or interstitial disease. ADDITIONAL FINDINGS: None. UPPER ABDOMEN: No acute findings. SKELETAL STRUCTURES: No significant osseous abnormality. IMPRESSION: 1. No CT evidence for pulmonary embolism. Interval resolution of previous left-sided pulmonary emboli . 2. No acute findings. Signer Name: Sebastian Guardado MD Signed: 03/08/2019 6:36 AM Workstation Name: [id number]
[2019-03-08] MEDS ORDERED: ONDANSETRON 4 MG/2 ML INJ IV ONE (06:43)
[2019-03-08] MEDS ORDERED: NITROGLYCERIN 2% OINT 1 GM TP ONE (06:43)
[2019-03-08] MEDS ORDERED: fentaNYL 100 MCG/2 ML INJ IV ONE (06:43)
--- NOTE | 2019-03-08 06:48 | Emergency Department Report ---
HPI - General Chief Complaint: Chest Pain Time Seen by Provider: 03/08/19 06:36 - HPI HPI: Room 6 The patient is a 38-year-old male presenting with chief complaint of chest pain shortness of breath. Patient states she was diagnosed with a DVT in his right lower extremity apartment 2 months ago. Patient states he never took his Eliquis. The patient states this morning at 01:00 he developed substernal chest pain described as sharp and constant in nature associated with shortness of breath. Patient admits to diaphoresis and nausea without vomiting. Patient denies pleurisy or cough. The patient gets his pain is currently 8/10. Patient states he's never had a stress test or cardiac catheterization Location: [See above] Duration: [See above] Quality: [See above] Severity: [See above] Timing: [See above] Context: [See above] Modifying factors: [See above] Associated signs and symptoms: [see above] ED Past Medical Hx - Past Medical History Previous Medical History?: Yes Hx Deep Vein Thrombosis: Yes - Surgical History Past Surgical History?: Yes Additional Surgical History: Right hand, right foot - Family History Family history: no significant - Social History Smoking Status: Current Every Day Smoker (1/2 pack per day) Substance Use Type: Alcohol (occasional) - Medications Home Medications: Home Medications Medication Instructions Recorded Confirmed Last Taken Type Apixaban [Eliquis starter pack] 5 mg PO DAILY #1 tab.ds.pk 12/11/18 Unknown Rx Nicotine [Habitrol] 14 mg TD QDAY #30 patch 12/11/18 Unknown Rx oxyCODONE /ACETAMINOPHEN [Percocet 1 tab PO Q6H PRN #30 tablet 12/11/18 Unknown Rx 5/325 mg] ED Review of Systems ROS: Stated complaint: CHEST PAIN Other details as noted in HPI Constitutional: diaphoresis Eyes: denies: eye pain ENT: denies: throat pain Respiratory: shortness of breath. denies: cough Cardiovascular: chest pain Endocrine: no symptoms reported Gastrointestinal: nausea. denies: vomiting Genitourinary: denies: dysuria Musculoskeletal: denies: back pain Neurological: denies: headache Physical Exam - Physical Exam Vital Signs: Vital Signs 03/08/19 05:09 Temperature 97.9 F Pulse Rate 75 Respiratory 18 Rate Blood Pressure 134/82 O2 Sat by Pulse 98 Oximetry Physical Exam: GENERAL: The patient is well-developed well-nourished male lying on stretcher not appearing to be in acute distress. [] HEENT: Normocephalic. Atraumatic. Extraocular motions are intact. Patient has moist mucous membranes. NECK: Supple. Trachea midline CHEST/LUNGS: Clear to auscultation. There is no respiratory distress noted. HEART/CARDIOVASCULAR: Regular. There is no tachycardia. There is no gallop rub or murmur. ABDOMEN: Abdomen is soft, nontender. Patient has normal bowel sounds. There is no abdominal distention. SKIN: There is no rash. There is no edema. There is no diaphoresis. NEURO: The patient is awake, alert, and oriented. The patient is cooperative. The patient has normal speech MUSCULOSKELETAL: There is no evidence of acute injury. ED Course Vital Signs 03/08/19 05:09 Temperature 97.9 F Pulse Rate 75 Respiratory 18 Rate Blood Pressure 134/82 O2 Sat by Pulse 98 Oximetry ED Medical Decision Making - Lab Data Result diagrams: 03/08/19 05:13 03/08/19 05:13 Laboratory Tests 03/08/19 03/08/19 03/08/19 05:13 05:13 05:13 WBC 6.7 RBC 3.87 Hgb 13.0 Hct 38.6 MCV 100 H MCH 34 H MCHC 34 RDW 13.4 Plt Count 363 Lymph % (Auto) 39.9 H [place] % (Auto) 7.9 H Eos % (Auto) 4.0 Baso % (Auto) 0.3 Lymph # 2.7 [place] # 0.5 Eos # 0.3 Baso # 0.0 Seg Neutrophils % 47.9 Seg Neutrophils # 3.2 D-Dimer 280.04 H Sodium 142 Potassium 3.8 Chloride 107.5 H Carbon Dioxide 21 L Anion Gap 17 BUN 12 Creatinine 1.0 Estimated GFR > 60 BUN/Creatinine Ratio 12 Glucose 161 H Calcium 8.2 L Total Bilirubin 0.20 AST 19 ALT 44 Alkaline Phosphatase 222 H Troponin T < 0.010 Total Protein 7.1 Albumin 3.9 Albumin/Globulin Ratio 1.2 - EKG Data -: EKG Interpreted by De EKG shows normal: sinus rhythm Rate: normal - EKG Data When compared to previous EKG there are: no significant change Interpretation: unchanged when compared t (12/10/2018) - Radiology Data Radiology results: report reviewed (chest x-ray, bilateral lower extremity Doppl er, CT chest), image reviewed (chest x-ray, bilateral lower extremity Doppler, CT chest) interpreted by me: Chest x-ray-no focal infiltrates, no pneumothorax [address] [address] XRay Report Signed Patient: SUJATHA ROSADO MR#: [id number] : 1980 Acct:[id number] Age/Sex: 38 / M ADM Date: 03/08/19 Loc: ED Attending Dr: Ordering Physician: Yohana Ny MD Date of Service: 03/08/19 Procedure(s): XR chest 1V ap Accession Number(s): [id number] cc: Yohana Ny MD Fluoro Time In Minutes: CHEST 1 VIEW 03/08/2019 6:07 AM INDICATION / CLINICAL INFORMATION: Chest Pain. COMPARISON: 12/09/18 FINDINGS: SUPPORT DEVICES: None. HEART / MEDIASTINUM: No significant abnormality. LUNGS / PLEURA: No significant pulmonary or pleural abnormality. No pneumothorax. ADDITIONAL FINDINGS: No significant additional findings. IMPRESSION: 1. No acute findings. No change. Signer Name: Sebastian Guardado MD Signed: 03/08/2019 6:27 AM Workstation Name: [id number] Transcribed By: DT Dictated By: Lobito Guardado MD Electronically Authenticated By: Lobito Guardado MD Signed Date/Time: 03/08 DD/ 5 TD/TT: [address] [address] Vascular Lab Report Signed Patient: SUJATHA ROSADO MR#: [id number] : 1980 Acct:[id number] Age/Sex: 38 / M ADM Date: 03/08/19 Loc: ED Attending Dr: Ordering Physician: Yohana Ny MD Date of Service: 03/08/19 Procedure(s): VL venous duplex LE BILAT Accession Number(s): [id number] cc: Yohana Ny MD DUPLEX DOPPLER LOWER EXTREMITY VEINS, BILATERAL INDICATION / CLINICAL INFORMATION: hx of DVT. Leg pain. TECHNIQUE: Duplex doppler imaging was performed through the veins of both lower extremities using venous compression and other maneuvers. COMPARISON: Ultrasound dated 12/09/18 FINDINGS: RIGHT COMMON FEMORAL VEIN: Negative. RIGHT FEMORAL VEIN: Negative. RIGHT POPLITEAL VEIN: Negative. RIGHT CALF VEINS: Negative. LEFT COMMON FEMORAL VEIN: Negative. LEFT FEMORAL VEIN: Negative. LEFT POPLITEAL VEIN: Negative. LEFT CALF VEINS: Negative. ADDITIONAL FINDINGS: None. IMPRESSION: 1. No sonographic evidence for DVT in either lower extremity. Signer Name: Sebastian Guardado MD Signed: 03/08/2019 5:57 AM Workstation Name: [id number] Transcribed By: DT Dictated By: Lobito Guardado MD Electronically Authenticated By: Lobito Guardado MD Signed Date/Time: 03/08/19556 DD/ 5 TD/TT: [place] [id number] Cat Scan Report Signed Patient: SUJATHA ROSADO MR#: [id number] : 1980 Acct:[id number] Age/Sex: 38 / M ADM Date: 03/08/19 Loc: ED Attending Dr: Ordering Physician: Yohana Ny MD Date of Service: 03/08/19 Procedure(s): CT angio chest Accession Number(s): [id number] cc: Yohana Ny MD CTA CHEST WITH CONTRAST INDICATION / CLINICAL INFORMATION: MAIN: chest pain leg pain hx of recent [id number]/100ML. TECHNIQUE: Axial CT images were obtained through the chest after injection of 100 MLO Omnipaque 350 IV contrast. 3 plane MIP and/or 3D reconstructions were produced. All CT scans at this location are performed using CT dose reduction for ALARA by means of automated exposure control. COMPARISON: CT dated 12/09/18 FINDINGS: PULMONARY ARTERIES: No acute pulmonary emboli. Previous left-sided pulmonary emboli have resolved. THORACIC AORTA: No significant abnormality. HEART: No significant abnormality. CORONARY ARTERIES: No significant calcification. MEDIASTINUM / JOHNNIE: No significant abnormality. PLEURA: No pleural effusion. No pneumothorax. LUNGS: No acute air space or interstitial disease. ADDITIONAL FINDINGS: None. UPPER ABDOMEN: No acute findings. SKELETAL STRUCTURES: No significant osseous abnormality. IMPRESSION: 1. No CT evidence for pulmonary embolism. Interval resolution of previous left-sided pulmonary emboli. 2. No acute findings. Signer Name: Sebastian Guardado MD Signed: 03/08/2019 6:36 AM Workstation Name: [email or web address] [id number] Transcribed By: DT Dictated By: Lobito Guardado MD Electronically Authenticated By: Lobito Guardado MD Signed Date/Time: 03/08/19635 DD/DT: 1 630 TD/TT: - Differential Diagnosis ACS, PE, pericarditis, GERD Critical care attestation.: If time is entered above; I have spent that time in minutes in the direct care of this critically ill patient, excluding procedure time. ED Disposition Clinical Impression: Chest pain Disposition: DC-09 OP ADMIT IP TO THIS HOSP Is pt being admited?: Yes Does the pt Need Aspirin: Yes Condition: Fair Instructions: Chest Pain (ED) Referrals: PRIMARY CARE, [Primary Care Provider] - 3-5 Days Time of Disposition: 07:08 (hospitalist paged)
[2019-03-08] MEDS ORDERED: ONDANSETRON 4 MG/2 ML INJ IV PRN (15:17)
[2019-03-08] MEDS ORDERED: ACETAMINOPHEN 325 MG TAB PO PRN (15:17)
[2019-03-08] MEDS ORDERED: HYDROmorphone 1 MG/1 ML INJ IV PRN (15:17)
[2019-03-08] MEDS ORDERED: IBUPROFEN 600 MG TAB PO PRN (15:17)
[2019-03-08] MEDS ORDERED: oxyCODONE /ACETAMINOPHEN 5-325MG TAB PO PRN (15:19)
[2019-03-08] MEDS ORDERED: NON-FORMULARY EACH (Apixaban [Eliquis Starter Pack] 5 MG) PO SCH (15:30)
--- NOTE | 2019-03-08 15:45 | Consultation ---
History of Present Illness Consult date: 03/08/19 Requesting physician: VALERIE NOLAND Consult reason: chest pain History of present illness: the pt is a 38 YO male with a past medical history of acute RLE DVT and left lung PE diagnosed 12/2018, tobacco use. He is previously unknown to our practice. He presented with complaints of chest pain since 1AM this morning. He was awake when he noted the development of midsternal pressure which was associated with nausea and SOB. He then began walking from his house to the hospital and the pain got worse and thus EMS was called. Pt was diagnosed wit DVT and PE in 12/2018. He was discharged home on Eliquis (recommended to take for 3 months) although he did not take this medication because it was too expensive. Pt was recently homeless and living in his car. Chest CT on this admission is negative for PE, no acute findings. On evaluation, pt reports he is still experiencing a minimal amount of chest pain. Troponin negative for AMI x 1, ECG with NAF. Pt denies any prior cardiac issues or cardiac w/u. Past History Past Medical History: DVT, pulmonary embolism Medications and Allergies Allergies Allergy/AdvReac Type Severity Reaction Status Date / Time No Known Allergies Allergy Verified 12/09/18 14:05 Home Medications Medication Instructions Recorded Confirmed Last Taken Type Apixaban [Eliquis starter pack] 5 mg PO DAILY #1 tab.ds.pk 12/11/18 Unknown Rx Nicotine [Habitrol] 14 mg TD QDAY #30 patch 12/11/18 Unknown Rx oxyCODONE /ACETAMINOPHEN [Percocet 1 tab PO Q6H PRN #30 tablet 12/11/18 Unknown Rx 5/325 mg] Active Meds: Active Medications Acetaminophen (Tylenol) 650 mg PO Q4H PRN PRN Reason: Pain MILD(1-3)/Fever >100.5/CHANDLER Famotidine (Pepcid) 20 mg PO BID SHARATH Hydromorphone HCl (Dilaudid) 0.5 mg IV Q3H PRN PRN Reason: Pain , Severe (7-10) Ibuprofen (Ibuprofen) 600 mg PO Q6H PRN PRN Reason: Pain, Mild (1-3) Miscellaneous Medication (Apixaban [Eliquis Starter Pack]) 5 mg PO DAILY SHARATH Nicotine (Habitrol) 14 mg TD QDAY SHARATH Ondansetron HCl (Zofran) 4 mg IV Q8H PRN PRN Reason: Nausea And Vomiting Oxycodone/Acetaminophen (Percocet 5/325) 1 tab PO Q6H PRN PRN Reason: Pain, Moderate (4-6) Sodium Chloride (Sodium Chloride Flush Syringe 10 Ml) 10 ml IV BID SHARATH Sodium Chloride (Sodium Chloride Flush Syringe 10 Ml) 10 ml IV PRN PRN PRN Reason: LINE FLUSH Review of Systems Constitutional: no weight loss, no weight gain, no fever, no chills, no sweats Ears, nose, mouth and throat: no ear pain, no nose pain, no sinus pressure, no sinus pain Cardiovascular: chest pain, lightheadedness, shortness of breath, dyspnea on exertion, no orthopnea, no palpitations, no rapid/irregular heart beat, no edema, no syncope, no high blood pressure, no leg edema Respiratory: shortness of breath, no cough, no dyspnea on exertion, no congestion, no wheezing, no pain on inspiration Gastrointestinal: nausea, no abdominal pain, no vomiting, no diarrhea, no constipation, no change in bowel habits Genitourinary Male: no dysuria, no hematuria, no flank pain, no discharge, no urinary frequency, no urinary hesitancy Musculoskeletal: no neck stiffness, no neck pain, no shooting arm pain, no arm numbness/tingling, no low back pain, no shooting leg pain Integumentary: no rash, no pruritis, no redness, no sores, no wounds Neurological: no head injury, no paralysis, no weakness, no parathesias, no numbness, no tingling, no seizures, no syncope Psychiatric: no anxiety Endocrine: no cold intolerance, no heat intolerance Hematologic/Lymphatic: no easy bruising, no easy bleeding Allergic/Immunologic: no urticaria, no wheezing Physical Examination Vital Signs Pulse 75 03/08/19 05:05 General appearance: no acute distress HEENT: Positive: PERRL, Normocephaly, Mucus Membranes Moist Neck: Positive: neck supple, trachea midline Cardiac: Positive: Reg Rate and Rhythm, S1/S2 Lungs: Positive: Decreased Breath Sounds Neuro: Positive: Grossly Intact Abdomen: Negative: Tender Skin: Negative: Rash Musculoskeletal: No Pain Extremities: Absent: edema Results 03/08/19 05:13 03/08/19 05:13 Cardiac Enzymes 03/08/19 Range/Units 05:13 AST 19 (5-40) units/L CBC 03/08/19 Range/Units 05:13 WBC 6.7 (4.5-11.0) K/mm3 RBC 3.87 (3.65-5.03) M/mm3 Hgb 13.0 (11.8-15.2) gm/dl Hct 38.6 (35.5-45.6) % Plt Count 363 (140-440) K/mm3 Lymph # 2.7 (1.2-5.4) K/mm3 [place] # 0.5 (0.0-0.8) K/mm3 Eos # 0.3 (0.0-0.4) K/mm3 Baso # 0.0 (0.0-0.1) K/mm3 Comprehensive Metabolic Panel 03/08/19 Range/Units 05:13 Sodium 142 (137-145) mmol/L Potassium 3.8 (3.6-5.0) mmol/L Chloride 107.5 H (98-107) mmol/L Carbon Dioxide 21 L (22-30) mmol/L BUN 12 (9-20) mg/dL Creatinine 1.0 (0.8-1.5) mg/dL Glucose 161 H (75-100) mg/dL Calcium 8.2 L (8.4-10.2) mg/dL AST 19 (5-40) units/L ALT 44 (7-56) units/L Alkaline Phosphatase 222 H (35-129) units/L Total Protein 7.1 (6.3-8.2) g/dL Albumin 3.9 (3.9-5) g/dL - Imaging and Cardiology Echo: pending EKG: report reviewed, image reviewed EKG interpretations - Telemetry EKG Rhythm: Sinus Rhythm - EKG Sinus rhythms and dysrhythmias: sinus rhythm Assessment and Plan Chest pain Troponin negative for AMI x 1, ECG with NAF. Will obtain second set of Justine. Obtain echo. Plan for treadmill MPI stress test in AM. NPO after MN. H/o RLE DVT / left lung PE Diagnosed 12/2018. Pt was noncompliant with anticoagulation. Chest CTA this admission is negative for PE, no acute findings. Eliquis resumed per primary. If affordability is an issue, perhaps Coumadin could be considered. Will defer to primary team. Obtain echo. Tobacco use Cessation encouraged. The patient has been seen in conjunction with Dr. Christina who agrees with the assessment and plan of care.
[2019-03-08] MEDS ORDERED: NICOTINE 14 MG/24 HR PATCH TD SCH (16:00)
[2019-03-08 16:42] VITALS: BP 117/55
[2019-03-08] MEDS ORDERED: APIXABAN 5 MG TAB PO SCH (22:00)
[2019-03-08] MEDS ORDERED: FAMOTIDINE 20 MG TAB PO SCH (22:00)
--- NOTE | 2019-03-09 08:47 | History and Physical Report ---
History of Present Illness Date of examination: 03/08/19 Date of admission: 03/08/19 07:10 Chief complaint: Chest pain 1 day History of present illness: The patient is a 38-year-old male presenting with chief complaint of chest pain shortness of breath. Patient states he was diagnosed with a DVT in his right lower extremity approximately 2 months ago. Patient states he never took his Eliquis. The patient states this morning at 01:00 he developed substernal chest pain described as sharp and constant in nature associated with shortness of breath. Patient admits to diaphoresis and nausea without vomiting. Patient denies pleurisy or cough. The patient rates his pain currently at 8/10. Patient states he's never had a stress test or cardiac catheterization Past Medical History Previous Medical History?: Yes Deep Vein Thrombosis-RLE Surgical History Past Surgical History?: Yes Additional Surgical History: Right hand, right foot Family History Family history: no significant Social History Smoking Status: Current Every Day Smoker (1/2 pack per day) Substance Use Type: Alcohol (occasional) Medications Home Medications: Home Medications Medication Instructions Recorded Confirmed Last Taken Type Apixaban [Eliquis starter pack] 5 mg PO DAILY #1 tab.ds.pk 12/11/18 Unknown Rx Nicotine [Habitrol] 14 mg TD QDAY #30 patch 12/11/18 Unknown Rx oxyCODONE /ACETAMINOPHEN [Percocet 1 tab PO Q6H PRN #30 tablet 12/11/18 Unknown Rx 5/325 mg] Review of Systems ROS: Stated complaint: CHEST PAIN Other details as noted in HPI Constitutional: diaphoresis Eyes: denies: eye pain ENT: denies: throat pain Respiratory: shortness of breath. denies: cough Cardiovascular: chest pain Endocrine: no symptoms reported Gastrointestinal: nausea. denies: vomiting Genitourinary: denies: dysuria Musculoskeletal: denies: back pain Neurological: denies: headache Past History Past Medical History: DVT, pulmonary embolism Medications and Allergies Allergies Allergy/AdvReac Type Severity Reaction Status Date / Time No Known Allergies Allergy Verified 12/09/18 14:05 Home Medications Medication Instructions Recorded Confirmed Last Taken Type Apixaban [Eliquis starter pack] 5 mg PO DAILY #1 tab.ds.pk 12/11/18 Unknown Rx Nicotine [Habitrol] 14 mg TD QDAY #30 patch 12/11/18 Unknown Rx oxyCODONE /ACETAMINOPHEN [Percocet 1 tab PO Q6H PRN #30 tablet 12/11/18 Unknown Rx 5/325 mg] Exam - Constitutional Vitals: Temp Pulse Resp BP Pulse Ox 97.7 F 79 14 117/55 98 03/08/19 12:12 03/08/19 16:40 03/08/19 17:15 03/08/19 16:40 03/08/19 16:40 General appearance: Present: no acute distress, well-nourished - EENT Eyes: Present: PERRL ENT: hearing intact, clear oral mucosa - Neck Neck: Present: supple, normal ROM - Respiratory Respiratory effort: normal Respiratory: bilateral: CTA - Cardiovascular Heart rate: 78 Rhythm: regular Heart Sounds: Present: S1 & S2. Absent: rub, click - Extremities Extremities: no ischemia, pulses intact, pulses symmetrical, No edema Peripheral Pulses: within normal limits - Abdominal General gastrointestinal: Present: soft, non-tender, non-distended, normal bowel sounds Male genitourinary: Present: normal - Rectal Rectal Exam: deferred - Integumentary Integumentary: Present: clear, warm, dry - Musculoskeletal Musculoskeletal: gait normal, strength equal bilaterally - Psychiatric Psychiatric: appropriate mood/affect, intact judgment & insight - Neurologic Neurologic: CNII-XII intact, moves all extremities - Allied Health Allied health notes reviewed: nursing, case management Results - Labs CBC & Chem 7: 03/08/19 05:13 03/08/19 05:13 Labs: Laboratory Last Values WBC 6.7 K/mm3 (4.5-11.0) 03/08/19 05:13 RBC 3.87 M/mm3 (3.65-5.03) 03/08/19 05:13 Hgb 13.0 gm/dl (11.8-15.2) 03/08/19 05:13 Hct 38.6 % (35.5-45.6) 03/08/19 05:13 MCV 100 fl (84-94) H 03/08/19 05:13 MCH 34 pg (28-32) H 03/08/19 05:13 MCHC 34 % (32-34) 03/08/19 05:13 RDW 13.4 % (13.2-15.2) 03/08/19 05:13 Plt Count 363 K/mm3 (140-440) 03/08/19 05:13 Lymph % (Auto) 39.9 % (13.4-35.0) H 03/08/19 05:13 [place] % (Auto) 7.9 % (0.0-7.3) H 03/08/19 05:13 Eos % (Auto) 4.0 % (0.0-4.3) 03/08/19 05:13 Baso % (Auto) 0.3 % (0.0-1.8) 03/08/19 05:13 Lymph # 2.7 K/mm3 (1.2-5.4) 03/08/19 05:13 [place] # 0.5 K/mm3 (0.0-0.8) 03/08/19 05:13 Eos # 0.3 K/mm3 (0.0-0.4) 03/08/19 05:13 Baso # 0.0 K/mm3 (0.0-0.1) 03/08/19 05:13 Seg Neutrophils % 47.9 % (40.0-70.0) 03/08/19 05:13 Seg Neutrophils # 3.2 K/mm3 (1.8-7.7) 03/08/19 05:13 D-Dimer 280.04 ng/mlDDU (0-234) H 03/08/19 05:13 Sodium 142 mmol/L (137-145) 03/08/19 05:13 Potassium 3.8 mmol/L (3.6-5.0) 03/08/19 05:13 Chloride 107.5 mmol/L (98-107) H 03/08/19 05:13 Carbon Dioxide 21 mmol/L (22-30) L 03/08/19 05:13 Anion Gap 17 mmol/L 03/08/19 05:13 BUN 12 mg/dL (9-20) 03/08/19 05:13 Creatinine 1.0 mg/dL (0.8-1.5) 03/08/19 05:13 Estimated GFR > 60 ml/min 03/08/19 05:13 BUN/Creatinine Ratio 12 % 03/08/19 05:13 Glucose 161 mg/dL (75-100) H 03/08/19 05:13 Hemoglobin A1c 5.4 % (4-6) 03/08/19 15:32 Calcium 8.2 mg/dL (8.4-10.2) L 03/08/19 05:13 Total Bilirubin 0.20 mg/dL (0.1-1.2) 03/08/19 05:13 AST 19 units/L (5-40) 03/08/19 05:13 ALT 44 units/L (7-56) 03/08/19 05:13 Alkaline Phosphatase 222 units/L (35-129) H 03/08/19 05:13 Troponin T < 0.010 ng/mL (0.00-0.029) 03/08/19 16:04 Total Protein 7.1 g/dL (6.3-8.2) 03/08/19 05:13 Albumin 3.9 g/dL (3.9-5) 03/08/19 05:13 Albumin/Globulin Ratio 1.2 % 03/08/19 05:13 Cardiac Enzymes 03/08/19 Range/Units 16:04 Troponin T < 0.010 (0.00-0.029) ng/mL - Imaging and Cardiology EKG: report reviewed (NSR -no acute st t wave changes) Chest x-ray: report reviewed (NAF) Imaging and Cardiology: CTA Chest IMPRESSION: 1. No CT evidence for pulmonary embolism. Interval resolution of previous left-sided pulmonary emboli. 2. No acute findings Duplex scan LE IMPRESSION: 1. No sonographic evidence for DVT in either lower extremity. Assessment and Plan Advance Directives: Yes (Full code) VTE prophylaxis?: Chemical Plan of care discussed with patient/family: Yes - Patient Problems (1) Chest pain Status: Acute Qualifiers: Chest pain type: unspecified Qualified Code(s): R07.9 - Chest pain, unspecified Plan to address problem: Chest pain r/o [facility] protocol Serial Troponins Stress test in AM (2) Nicotine dependence Status: Chronic Qualifiers: Nicotine product type: cigarettes Plan to address problem: Counselled Nicoderm patch initiated (3) DVT prophylaxis Status: Acute Plan to address problem: On Lovenox
--- NOTE | 2019-03-09 09:05 | Discharge Summary ---
Providers - Providers Date of Admission: 03/08/19 07:10 Date of discharge: 03/08/19 Attending physician: VALERIE NOLAND 03/08/19 05:10 Consult to Case Management [CONS] Stat Services Needed at Discharge: [employer]igator Notified:: n Additional Physician Instructions: Needs assistance with medication, lack of financial resources 03/08/19 15:17 Consult to Physician [CONS] Routine Comment: Consulting Provider: LAUREL JARA Physician Instructions: Reason For Exam: Chest pain Primary care physician: RENTAL AGENT Hospitalization Condition: Fair Hospital course: Admitted for chest pain Left AMA for taking care of Kids at home as his has to go to work (1) Chest pain Status: Acute Qualifiers: Chest pain type: unspecified Qualified Code(s): R07.9 - Chest pain, unspecified Plan to address problem: Chest pain r/o [facility] protocol Serial Troponins---negative Stress test not done b/c of AMA (2) Nicotine dependence Status: Chronic Qualifiers: Nicotine product type: cigarettes Plan to address problem: Counselled to stop smoking and use Nicoderm patch which is OTC Disposition: DC-07 LEFT AGAINST MED ADVICE - Discharge Diagnoses (1) Chest pain Status: Acute Qualifiers: Chest pain type: unspecified Qualified Code(s): R07.9 - Chest pain, unspecified (2) Nicotine dependence Status: Chronic Qualifiers: Nicotine product type: cigarettes (3) DVT prophylaxis Status: Acute Core Measure Documentation - Palliative Care Palliative Care/ Comfort Measures: Not Applicable - Core Measures Any of the following diagnoses?: none Exam - Constitutional Vitals: Temp Pulse Resp BP Pulse Ox 97.7 F 79 14 117/55 98 03/08/19 12:12 03/08/19 16:40 03/08/19 17:15 03/08/19 16:40 03/08/19 16:40 General appearance: Present: no acute distress, well-nourished - EENT Eyes: Present: PERRL ENT: hearing intact, clear oral mucosa - Neck Neck: Present: supple, normal ROM - Respiratory Respiratory effort: normal Respiratory: bilateral: CTA - Cardiovascular Heart Sounds: Present: S1 & S2. Absent: rub, click - Extremities Extremities: pulses symmetrical, No edema Peripheral Pulses: within normal limits - Abdominal General gastrointestinal: Present: soft, non-tender, non-distended, normal bowel sounds Male genitourinary: Present: normal - Integumentary Integumentary: Present: clear, warm, dry - Musculoskeletal Musculoskeletal: gait normal, strength equal bilaterally - Psychiatric Psychiatric: appropriate mood/affect, intact judgment & insight - Neurologic Neurologic: CNII-XII intact, moves all extremities Plan Activity: no restrictions Diet: low salt Follow up with: PRIMARY CARE, [Primary Care Provider] - 3-5 Days Forms: AMA Form
[2019-03-14] MEDS ORDERED: APIXABAN 5 MG TAB PO SCH (22:00)
== END 2019-03-08 19:55 | disposition left against medical advice (07) | DRG 313 ==
LOC: ED 05:00 → 4A 07:10
PROVIDERS: ADMIT Internal Medicine; ATTEND Internal Medicine
DX: R07.9 Chest pain, unspecified (principal); F17.210 Nicotine dependence, cigarettes, uncomplicated; Z71.6 Tobacco abuse counseling; Z86.718 Personal history of other venous thrombosis and embolism; Z72.89 Other problems related to lifestyle; Z79.899 Other long term (current) drug therapy; Z86.711 Personal history of pulmonary embolism
CPT/HCPCS: 36415; 71045; 71275; 80053; 83036; 84484; 85025; 85379; 93005; 93010; 93970; 96361; 96374; G0378; J2405; J3010; J7030; Q9967